=== PATIENT | male | born 1985 | race Two or more races ===

== ENCOUNTER 2018-12-23 23:18 | Emergency (ER) | payer OTHER, MEDICAID ==
[~2018-12-23] VITALS: Ht 193 cm; Wt 72.6 kg
[2018-12-23 23:20] VITALS: BP 150/88
[2018-12-24] MEDS ORDERED: LORAZEPAM INJ 2 MG/ML VIAL IM ONE
[2018-12-24] MEDS ORDERED: ONDANSETRON 4 MG TAB.RAPDIS SL ONE
[2018-12-24] MEDS ORDERED: ONDANSETRON 4 MG TAB.RAPDIS ONE (00:26)
[2018-12-24] MEDS ORDERED: LORAZEPAM INJ 2 MG/ML VIAL ONE (00:27)
== END 2018-12-24 00:41 ==
LOC: ER 23:19
DX: F11.10 Opioid abuse, uncomplicated (principal)
CPT/HCPCS: 96372; 99283; J2060; Q0162